=== PATIENT | male | born 1955 | race Caucasian/White ===

== ENCOUNTER → 2020-01-24 | Outpatient (CLI) | payer OTHER ==
[~2020-01-24] MED LIST: ASA81BEC PO; CLOPIDOGREL75 MG PO; D3-200050 MCG PO; FERROUS FUMARA324 MG PO; HUMALOG100 UNIT/1 SUBQ; LEVO-T50 MCG PO; LIPITOR40 MG PO; TRESIBA100 UNIT/1 SUBQ; VITAMIN B-121000 MC2 SUBLING
== END ==
LOC: SJCVC 09:46
PROVIDERS: ATTEND Internal Medicine Cardiovascular Disease
DX: R94.31 Abnormal electrocardiogram [ECG] [EKG] (principal); E11.51 Type 2 diabetes mellitus with diabetic peripheral angiopathy without gangrene; I51.7 Cardiomegaly; E11.621 Type 2 diabetes mellitus with foot ulcer; L97.509 Non-pressure chronic ulcer of other part of unspecified foot with unspecified severity

== ENCOUNTER → 2020-01-25 | Outpatient (CLI) | payer OTHER | LOC: SJCVCIMAG 13:39 | PROVIDERS: ATTEND Nuclear Medicine Nuclear Cardiology | DX: R00.0 Tachycardia, unspecified (principal); R94.31 Abnormal electrocardiogram [ECG] [EKG]; I73.9 Peripheral vascular disease, unspecified; I51.7 Cardiomegaly; E78.5 Hyperlipidemia, unspecified; E11.9 Type 2 diabetes mellitus without complications; Z79.4 Long term (current) use of insulin; Z79.899 Other long term (current) drug therapy ==

== ENCOUNTER 2020-01-26 11:44 | Outpatient (CLI) | payer OTHER ==
[~2020-01-26] VITALS: Ht 180.3 cm; Wt 63.7 kg
[2020-01-26] VITALS (11 sets, daily range): BP systolic 113–163; BP diastolic 11–110
[2020-01-26] MEDS ORDERED: ASA81BEC PO (12:35)
[2020-01-26] MEDS ORDERED: LIPITOR40 MG PO (12:36)
[2020-01-26] MEDS ORDERED: D3-200050 MCG PO (12:37)
[2020-01-26] MEDS ORDERED: CLOPIDOGREL75 MG PO (12:37)
[2020-01-26] MEDS ORDERED: VITAMIN B-121000 MC2 SUBLING (12:38)
[2020-01-26] MEDS ORDERED: FERROUS FUMARA324 MG PO (12:39)
[2020-01-26] MEDS ORDERED: HUMALOG100 UNIT/1 SUBQ (12:39)
[2020-01-26] MEDS ORDERED: TRESIBA100 UNIT/1 SUBQ (12:40)
[2020-01-26] MEDS ORDERED: LEVO-T50 MCG PO (12:41)
[2020-01-26 12:52] LABS: ABSOLUTE NEUTROPHILS 3.3 thou/uL (1.4-8.2); BASOPHILS 1.4 % (0.0-2.0); EOSINOPHILS 4.9 % (0.0-3.0); HEMATOCRIT 36.5 % (42.0-52.0); HEMOGLOBIN 12.2 gm/dL (14.0-18.0); LYMPHOCYTES 20.1 % (24.0-44.0); MCH 34.8 pg (26.0-34.0); MCHC 33.5 g/dL (28.0-37.0); MONOCYTES 8.7 % (1.0-8.0); PLATELET COUNT 253 thou/uL (150-400); POLYS 64.9 % (36.0-66.0); RBC 3.51 mil/uL (4.50-6.00); RDW 12.9 % (10.5-14.5)
[2020-01-26 12:56] LABS: CALCIUM 8.9 mg/dL (8.5-10.1); POTASSIUM 4.8 mmol/L (3.5-5.1)
--- NOTE | 2020-01-26 16:07 | EKG ---
[facility] [place] [address] ELECTROCARDIOGRAM REPORT Name: JENA FRIAS [id number] Admission: 01/26/20 Attend Phys: Chi Estrada MD Discharge: Date of : 55 Report #: [id number] THIS REPORT FOR: cc: El Morfin MD, [place] S. 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1955 Requested By: José Higuera Order Number: [id number] MD: Lalo Delaney Measurements Intervals [place] Rate: 89 P: 76 AL: 148 QRS: 73 QRSD: 102 T: -74 QT: 379 QTc: 462 Interpretive Statements Sinus rhythm Ventricular premature complex Probable left ventricular hypertrophy No previous ECG available for comparison Electronically Signed On 01-26-2020 16:07:01 CDT by Lalo Delaney [email or web address] <ELECTRONICALLY SIGNED> By: Lalo Delaney MD, [facility] 01/26/20 1607 1326 1326 Lalo Delaney MD, [facility] /EPI
--- NOTE | 2020-01-26 18:10 | NUR ---
SENT PAGE TO DR KEEN WHO IS [employer]PER[employer] FOR CARDIOLOGY REGARDING PT HIGH BLOOD PRESSURE.
--- NOTE | 2020-01-26 18:30 | NUR ---
PT WAS ADMITTED FROM CHARACTER IMPERSONATOR AT 1725. PT IS VERY DROWSY FROM SEDATION STILL. WILL WAKE UP AND ANSWER QUESTIONS BUT FALLS RIGHT BACK TO SLEEP. PT HAS PROTHESIS ON RLE AND BRACE FOR LLE. PER CHARACTER IMPERSONATOR RN PT HAS WOUNDS ON LEFT FOOT AND RIGHT STUMP, WILL PASS ON TO STOCK OR DELIVERY CLERK TO TAKE PICTURES. GROIN IS C/D/I , NO HEMATOMA, SOFT, PULSATILE.
--- NOTE | 2020-01-26 18:48 | NUR ---
STILL NO CALL BACK FROM DR KEEN, PAGED DR SUN.
--- NOTE | 2020-01-26 20:46 | NUR ---
RECIEVED CALL BACK FROM DR KEEN ABOUT PT'S ELEVATED BP. NEW ORDER HYDRALAZINE 10MG IV Q4H PRN FOR SBP > 160.
--- NOTE | 2020-01-26 21:31 | NUR ---
PT BLOOD SUGAR AT HS 33 REPEATED BS = 34. TREATED WITH PER ORDERS RECHECKED AFTER 20 MINUTES BS = 126. PT EATING HIS DINNER AT THIS TIME. CONTINUING TO MONITOR
[2020-01-27 03:53] VITALS: BP 125/83
--- NOTE | 2020-01-27 06:05 | NUR ---
PT A&O X4 ABLE TO MAKE NEEDS KNOWN. DENIES PAIN SO FAR THIS SHIFT. POST HEART DURING THE PREVIOUS SHIFT THRO LEFT FEMORAL WITH BEDREST COMPLETE AT 2030HRS WITH ANY ISSUES. CATH SITE CDI. VSS HAVE BEEN STABLE WITHOUT ANY PRN HYDRALAZINE GIVEN. LAST BP 123/85, 87. RBKA HAS PROSTHESIS. ACHS HYPOGLYCEMIC AT HS BS 33 AND 34, THIS MORNING BS 181. PT CALLS APPROPRIATELY
[2020-01-27 06:26] LABS: HEMATOCRIT 35.5 % (42.0-52.0); HEMOGLOBIN 12.1 gm/dL (14.0-18.0); MCH 35.4 pg (26.0-34.0); MCV 104.1 fL (80.0-100.0); RBC 3.41 mil/uL (4.50-6.00); WBC 4.4 thou/uL (4.0-11.0)
[2020-01-27 06:42] LABS: ALBUMIN 2.7 g/dL (3.4-5.0); CALCIUM 8.5 mg/dL (8.5-10.1); CREATININE 1.6 mg/dL (0.7-1.3); POTASSIUM 4.3 mmol/L (3.5-5.1); TOTAL BILIRUBIN 0.4 mg/dL (0.2-1.0); TOTAL PROTEIN 6.1 g/dL (6.4-8.2)
[2020-01-27 08:00] VITALS: BP 134/92
--- NOTE | 2020-01-27 09:10 | EKG ---
[facility] [place] [address] ELECTROCARDIOGRAM REPORT Name: JENA FRIAS [facility] [id number] Admission: 01/26/20 Attend Phys: Chi Estrada MD Discharge: Date of : 55 Report #: [id number] THIS REPORT FOR: cc: El Morfin MD, [place] S. MD Lundgren, Craig H. MD [facility] ~ THIS REPORT FOR: //name// [facility] Test Date: 2020-01-27 Test Time: 07:17:45 Pat Name: JENA FRIAS Department: Room: 208 Gender: M Rigger: SAMY : 1955 Requested By: José Higuera Order Number: [id number] MD: Lalo Delaney Measurements Intervals [place] Rate: 91 P: 81 PA: 144 QRS: 69 QRSD: 100 T: -68 QT: 376 QTc: 463 Interpretive Statements Sinus rhythm Left ventricular hypertrophy Nonspecific ST segment abnormality Compared to ECG 01/26/2020 13:26:56 Ventricular premature complex(es) no longer present Electronically Signed On 01-27-2020 9:10:13 CDT by Lalo Delaney [email or web address] <ELECTRONICALLY SIGNED> By: Lalo Delaney MD, [facility] 01/27/20909 6 6 Lalo Delaney MD, [facility] /EPI
[2020-01-27 09:14] VITALS: BP 134/92
--- NOTE | 2020-01-27 09:46 | NUR ---
PT CARE ASSUMED AT 0700. ASSESSMENT CHARTED. MEDICATION CHARTED. PT DISCHARGED TO HOME. IV D/C'D. TELEMETRY D/C'D.
--- NOTE | 2020-01-31 18:22 | CATHLAB ---
[facility] [place] [address] INVASIVE PROCEDURE REPORT Name: JENA FRIAS Room #: DEP LINDA John#: [id number] Admission: 01/26/20 Attend Phys: Chi Estrada MD Discharge: 01/27/20 Date of : 55 Report #: [id number] THIS REPORT FOR: cc: El Morfin MD, [place] S. MD Mancuso, Gerald M. MD [facility] ~ APPROVED REPORT Study performed: 01/26/2020 16:08:24 Patient Details Patient Status: Out-Patient Room #: The patient is a 64 year-old male Event Personnel José Higuera MD, , Jayleen Shankar RN RN, Cass Quintanilla, Bella Peterson Scrub Procedures Performed Art Access - R femoral artery* Left Heart Cath w/or w/o Coronaries [id number] [facility] Hemostasis w/ Mynx Indication Chest pain Procedure Narrative The patient was brought electively to the Cardiac Catheterization Laboratory and was prepped and draped in a sterile manner. A SHEATH BRITE-TIP 6F X 11CM ([id number]) sheath was inserted into the RFA 6F^. Coronary angiography was performed using coronary diagnostic catheters. The right coronary system was accessed and visualized with a JR 4 catheter. The left coronary system was accessed and visualized with a JL 4 catheter. The left ventricle was accessed and visualized with a Pigtail catheter. Left ventricular/Aortic Valve gradient assessed via catheter pullback. Closure device was deployed with a 6 Fr Mynx. The patient tolerated the procedure well and there were no complications associated with the procedure. There was no hematoma. Intraoperative Conscious Sedation Sedation start time: 16:20 Case end Time: 16:54 Fentanyl mcg Versed mg [facility] [address] [place] [address] INVASIVE PROCEDURE REPORT Name: GUILLERMO FRIASLO [id number] Admission: 01/26/20 Attend Phys: Chi Estrada, Discharge: 01/27/20 Date of : 55 Report #: [id number] Fluoro Time: 1.20 minutes Dose: DAP 1140.00 cGycm2 118 mGy Contrast Type and Amount: Visipaque 78 ml Hemodynamics The aortic pressure is 170/81 mmHg with a mean of 118 mmHg. The left ventricular pressure is 147/5 mmHg with a mean of mmHg. The left ventricular end diastolic pressure is 7 mmHg. PCI Technique Lesion Percutaneous coronary intervention was performed on the Unspecified. Conclusion 1. Left main free of disease giving rise to LAD and circumflex #2 LAD extends around the apex there is an eccentric proximal 70% lesion and also at a diagonal takeoff which is a 70% eccentric lesion these vessels are otherwise well-preserved. 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 There is significant collateralization to the PDA via predominantly the septal perforators of the LAD system. #5 normal left jugular size with inferior basilar hypokinesis EF 45 to 50% range Recommendations and plan: Continue aggressive risk factor modification. Will follow this complex LAD diagonal lesions treat medically follow-up stress testing. <ELECTRONICALLY SIGNED> By: José Higuera MD, [facility] 01/31/201820 20 20 José Higuera MD, FACC /INF
== END 2020-01-27 10:04 | disposition home or self-care (01) ==
LOC: CATH 11:44 → 2N 17:37 → CATH 01-27 10:04
PROVIDERS: Internal Medicine Cardiovascular Disease; ATTEND Nuclear Medicine Nuclear Cardiology
DX: R07.9 Chest pain, unspecified (principal); I25.10 Atherosclerotic heart disease of native coronary artery without angina pectoris; E11.9 Type 2 diabetes mellitus without complications; I73.9 Peripheral vascular disease, unspecified; E03.9 Hypothyroidism, unspecified; Z98.890 Other specified postprocedural states; Z87.891 Personal history of nicotine dependence; Z79.899 Other long term (current) drug therapy
CPT/HCPCS: 10081

== ENCOUNTER → 2020-05-16 | Outpatient (CLI) | payer OTHER | LOC: SJCVCIMAG 11:03 | PROVIDERS: ATTEND Nuclear Medicine Nuclear Cardiology | DX: I65.23 Occlusion and stenosis of bilateral carotid arteries (principal); I70.202 Unspecified atherosclerosis of native arteries of extremities, left leg; S88.111A Complete traumatic amputation at level between knee and ankle, right lower leg, initial encounter; L97.509 Non-pressure chronic ulcer of other part of unspecified foot with unspecified severity; I25.10 Atherosclerotic heart disease of native coronary artery without angina pectoris; I77.9 Disorder of arteries and arterioles, unspecified; E10.621 Type 1 diabetes mellitus with foot ulcer; E10.51 Type 1 diabetes mellitus with diabetic peripheral angiopathy without gangrene; E10.22 Type 1 diabetes mellitus with diabetic chronic kidney disease; N18.9 Chronic kidney disease, unspecified; Z79.899 Other long term (current) drug therapy; X58.XXXA Exposure to other specified factors, initial encounter; Y93.89 Activity, other specified; Y92.89 Other specified places as the place of occurrence of the external cause; Y99.8 Other external cause status ==